=== PATIENT | male | born 1975 | race Caucasian/White ===

== ENCOUNTER 2017-04-05 16:39 | Emergency (ER) | payer OTHER ==
[2017-04-05 17:23] LABS: URINE BILIRUBIN NEGATIVE (NEGATIVE); URINE BLOOD NEGATIVE (NEGATIVE); URINE GLUCOSE (UA) NORMAL (NORMAL); URINE KETONE NEGATIVE (NEGATIVE); URINE LEUKOCYTE ESTERASE NEGATIVE (NEGATIVE); URINE NITRATE NEGATIVE (NEGATIVE); URINE PROTEIN NEGATIVE (NEGATIVE); UROBILINOGEN NORMAL mg/dL (<1.0)
[2017-04-05 17:25] LABS: BASO # 0.1 10_X3_uL (0.0-0.1); BASO % 0.8 % (0.2-1.2); EOS # 0.1 10_X3_uL (0.0-0.5); EOS % 0.8 % (0.8-7.0); GRAN # 5.1 10_X3_uL (1.8-5.4); GRAN % 56.1 % (34.0-67.9); HEMATOCRIT 37.8 % (40-51); HEMOGLOBIN 12.4 g/dL (13.7-17.5); LYMPH # 3.3 10_X3_uL (1.3-3.6); LYMPH % 36.5 % (21.8-53.1); MEAN CORPUSCULAR HEMOGLOBIN 28.8 pg (27.0-33.0); MEAN CORPUSCULAR HGB CONC 32.8 g/dL (32.0-36.0); MEAN CORPUSCULAR VOLUME 87.9 fL (79-92); MEAN PLATELET VOLUME 10.2 fl (7.5-11.5); MONO # 0.5 10_X3_uL (0.3-0.8); MONO % 5.8 % (5.3-12.2); PLATELET COUNT 403 x10_3/uL (163-337); WHITE BLOOD COUNT 9.1 x10_3/uL (4.2-9.1)
[2017-04-05 17:41] LABS: ALBUMIN 4.5 gm/dL (3.4-5.0); ALKALINE PHOSPHATASE 96 U/L (50-136); ALT/SGPT 18 U/L (7.53-40.17); AST/SGOT 18 U/L (6.66-35.34); BLOOD UREA NITROGEN 6 mg/dL (7-18); CALCIUM 9.4 mg/dL (8.7-10.7); CARBON DIOXIDE 27 mmol/L (21-32); CREATININE 0.8 mg/dL (0.6-1.3); GLUCOSE,RANDOM 95 mg/dL (70-99); LIPASE 50 U/L (6.75-60.75); POTASSIUM 3.7 mmol/L (3.5-5.1); SODIUM 133 mmol/L (136-145); TOTAL PROTEIN 7.8 gm/dL (6.4-8.2)
[2017-04-05 17:50] LABS: BILIRUBIN,TOTAL < 0.15 mg/dL (0.0-1.0)
== END 2017-04-05 18:21 | disposition home or self-care (01) ==
LOC: ER 16:39
PROVIDERS: Internal Medicine
DX: K62.89 Other specified diseases of anus and rectum (principal); N20.0 Calculus of kidney; R10.32 Left lower quadrant pain; R10.31 Right lower quadrant pain; Z79.899 Other long term (current) drug therapy; Z88.8 Allergy status to other drugs, medicaments and biological substances
CPT/HCPCS: 36415; 74150; 80053; 81003; 83690; 85025; 99283-25